=== PATIENT | male | born 1965 | race Caucasian/White ===

== ENCOUNTER 2018-09-22 09:07 | Day surgery (SDC) | payer OTHER ==
[2018-09-22] MEDS ORDERED: Depo-Medrol 40 MG/ML IM ONE (09:08)
[2018-09-22] MEDS ORDERED: Xylocaine-Mpf 2% 5 Ml Vial IJ ONE (09:08)
[2018-09-22] MEDS ORDERED: DIPRIVAN 200 MG/20 ML IV ONE (09:08)
--- NOTE | 2018-09-22 11:46 | XRAY ---
7 seconds fluoroscopy time in surgery for bilateral L4-S1 MBB.
--- NOTE | 2018-09-22 11:49 | XRAY ---
Indication: Bilateral L4-S1 MBB. Intraoperative fluoroscopy was provided for 7 seconds. Single digital spot image submitted for interpretation demonstrates posterior spinal needle tips projecting over the expected course of the left and right L4-S1 nerve roots. Correlate with intraoperative findings/report.
[2018-09-22] MEDS ORDERED: Lactated Ringers 1,000 ML IV ONE (14:59)
== END 2018-09-22 10:52 | disposition home or self-care (01) ==
LOC: SDC-PAIN 09:07
PROVIDERS: ATTEND Psychiatry & Neurology Pain Medicine
DX: M47.816 Spondylosis without myelopathy or radiculopathy, lumbar region (principal); I10 Essential (primary) hypertension; J44.9 Chronic obstructive pulmonary disease, unspecified; K21.9 Gastro-esophageal reflux disease without esophagitis; F32.9 Major depressive disorder, single episode, unspecified; Z79.899 Other long term (current) drug therapy
CPT/HCPCS: 72020; 77002; J1030; J2704

== ENCOUNTER 2019-06-29 11:52 | Day surgery (SDC) | payer OTHER ==
[2019-06-29] MEDS ORDERED: Marcaine 0.5% SDV 10 ML IJ ONE (11:53)
[2019-06-29] MEDS ORDERED: Depo-Medrol 40 MG/ML IM ONE (11:53)
[2019-06-29] MEDS ORDERED: Ketamine HCl 50 MG/ML ONE (13:03)
[2019-06-29] MEDS ORDERED: DIPRIVAN 200 MG/20 ML IV ONE (13:03)
--- NOTE | 2019-06-29 15:23 | XRAY ---
Indication: Bilateral L4-S1 MBB. Intraoperative fluoroscopy was provided for 8 seconds. Single digital spot image submitted for interpretation demonstrates posterior needle tips projecting over the expected course of the left and right L4-S1 nerve roots. Correlate with intraoperative findings/report.
--- NOTE | 2019-06-29 15:28 | XRAY ---
8 seconds fluoroscopy time in surgery for bilateral L4-S1 MBB.
[2019-06-29] MEDS ORDERED: Lactated Ringers 1,000 ML IV ONE (16:17)
== END 2019-06-29 13:30 | disposition home or self-care (01) ==
LOC: SDC-PAIN 11:52
PROVIDERS: ATTEND Psychiatry & Neurology Pain Medicine
DX: M47.816 Spondylosis without myelopathy or radiculopathy, lumbar region (principal); I10 Essential (primary) hypertension; K21.9 Gastro-esophageal reflux disease without esophagitis; J44.9 Chronic obstructive pulmonary disease, unspecified; F41.8 Other specified anxiety disorders; Z79.899 Other long term (current) drug therapy
CPT/HCPCS: 72020; 77002; J1030; J2704